=== PATIENT | male | born 2005 | race Two or more races ===

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

== ENCOUNTER 2023-12-14 11:56 | Emergency (ER) | payer MEDICAID ==
[~2023-12-14] VITALS: Ht 167.6 cm; Wt 72.6 kg
[2023-12-14 12:16] VITALS: BP 120/81; TEMP 99.1
[2023-12-14] MEDS ORDERED: BACI/NEOM/POLY B OINT PKT 1 UDPKT PACKET ONE (13:00)
[2023-12-14] MEDS ORDERED: IBUPROFEN 600 MG TABLET ONE (13:01)
[2023-12-14] MEDS ORDERED: TDAP [DIPH/PERTUSSIS/TET] 0.5 ML VIAL IM ONE (13:02)
[2023-12-14] MEDS: TDAP [DIPH/PERTUSSIS/TET] 0.5 ML VIAL IM ONE (13:11)
[2023-12-14] MEDS: BACI/NEOM/POLY B OINT PKT 1 UDPKT PACKET TP ONE (13:12)
[2023-12-14] MEDS: IBUPROFEN 600 MG TABLET PO ONE (13:12)
[2023-12-14 13:13] VITALS: O2SAT 99
== END 2023-12-14 13:14 | disposition home or self-care (01) ==
LOC: ER 12:07
DX: T22.011A Burn of unspecified degree of right forearm, initial encounter (principal); X13.1XXA Other contact with steam and other hot vapors, initial encounter; Y93.89 Activity, other specified; Y92.89 Other specified places as the place of occurrence of the external cause; Y99.8 Other external cause status
CPT/HCPCS: 90715